=== PATIENT | female | born 1990 | race Caucasian/White ===

== ENCOUNTER 2017-03-22 18:14 | Emergency (ER) | payer OTHER ==
--- NOTE | 2017-03-23 13:29 | ER ---
ADMIT: 03/22/2017 RM/LOC: [facility] MR#: [id number] [id number] BENYNOELLE LAZARO [address] [place] [address] Emergency Room Report SEX: F AGE: 26 : 1990 DATE: 03/22/2017 HISTORY OF PRESENT ILLNESS: The patient is a 26-year-old female, presents to the emergency room complaining of abdominal pain. She points straight to the suprapubic area and radiating down to the right groin. This started 4 days ago. She says she came down with some nausea and vomiting since Sunday. Upon asking her if she thinks she is , she says I am not trying to be , but it will be nice if I am. REVIEW OF SYSTEMS: Anxiety and depression. PAST MEDICAL HISTORY: Ectopic and depression. MEDICATIONS: She takes: 1. Paxil. 2. Xanax. 3. Ibuprofen. ALLERGIES: HAS NO ALLERGIES. SOCIAL HISTORY: She is a smoker. PAST SURGICAL HISTORY: She has had a in the past. PHYSICAL EXAMINATION: VITAL SIGNS: Blood pressure is 117/69, heart rate is 90, respirations 16, temp is 98.1, and O2 sats 98%. GENERAL: Mildly anxious. at bedside. HEENT: Normal inspection. NECK: Supple. The rest of the physical examination is within normal limits. ABDOMEN: Suprapubic tenderness with right groin area radiation. BACK: Normal inspection. ADMIT: 03/22/2017 RM/LOC: [facility] MR#: [id number] [id number] NOELLE SWAN [address] [place] [id number] Emergency Room Report SEX: F AGE: 26 : 1990 LABORATORY DATA: UA shows a positive urinalysis, wbc's 2, rbc's 28, protein trace, leukocytes 1+. Culture and sensitivity pending. Urine test is negative. CLINICAL IMPRESSION: 1. Urinary tract infection. 2. Abdominal pain. 3. Suprapubic tenderness. She was given a prescription for Macrobid and Zofran and a pill to start her on the antibiotics in the emergency room. Instructions given for close followup with her primary provider. TONI Dias / Ludwin Ghosh MD / jacques JOB #: [id number] CC: Ludwin Ghosh MD, Attending Physician Pal Lam MD, Family Physician
== END 2017-03-22 19:30 | disposition home or self-care (01) ==
LOC: ER 18:14
DX: N39.0 Urinary tract infection, site not specified (principal); F32.9 Major depressive disorder, single episode, unspecified; F17.210 Nicotine dependence, cigarettes, uncomplicated; Z79.899 Other long term (current) drug therapy